=== PATIENT | female | born 2000 | race African-American/Black ===

== ENCOUNTER 2021-12-24 09:36 | Emergency (ER) | payer OTHER ==
[~2021-12-24] VITALS: Ht 167.6 cm; Wt 54.9 kg
[2021-12-24] MEDS ORDERED: NEXP1IMP SC (09:42)
[2021-12-24 10:33] LABS: BASO % 0.4 % (0.0-1.0); EOS % 0.1 % (0.0-3.0); HEMOGLOBIN 14.1 g/dl (12.0-15.5); LYMPH # 2.4 10^3/uL (1.5-5.0); LYMPH % 24.6 % (24.0-44.0); MEAN CORPUSCULAR HEMOGLOBIN 30.8 pg (27.0-33.0); MEAN CORPUSCULAR HGB CONC 33.6 g/dl (32.0-36.5); MEAN CORPUSCULAR VOLUME 91.7 fl (80.0-96.0); MONO # 0.6 10^3/uL (0.0-0.8); MONO % 6.1 % (2.0-8.0); NEUTROPHILS # 6.6 10^3/uL (1.5-8.5); NEUTROPHILS % 68.6 % (36.0-66.0); PLATELET COUNT, AUTOMATED 232 10^3/uL (150-450); RED BLOOD COUNT 4.58 10^6/uL (4.00-5.40); WHITE BLOOD COUNT 9.6 10^3/uL (4.0-10.0)
[2021-12-24 10:55] LABS: AMPHETAMINES LEVEL URINE NEGATIVE (NEGATIVE); BARBITURATES URINE NEGATIVE (NEGATIVE); BENZODIAZEPINES URINE NEGATIVE (NEGATIVE); CANNABINOIDS URINE NEGATIVE (NEGATIVE); COCAINE METABOLITE URINE NEGATIVE (NEGATIVE); METHADONE URINE NEGATIVE (NEGATIVE); OPIATES URINE NEGATIVE (NEGATIVE); PHENCYCLIDINE URINE NEGATIVE (NEGATIVE)
[2021-12-24 11:14] LABS: ACETAMINOPHEN LEVEL 31.6 UG/ML (10.0-30.0); ALBUMIN 4.4 GM/DL (3.2-5.2); ALT/SGPT 16 U/L (12-78); BILIRUBIN,DIRECT < 0.1 MG/DL (0.0-0.2); BILIRUBIN,TOTAL 0.2 MG/DL (0.2-1.0); BLOOD UREA NITROGEN 8 MG/DL (7-18); CALCIUM LEVEL 9.5 MG/DL (8.5-10.1); CARBON DIOXIDE LEVEL 26 MEQ/L (21-32); CHLORIDE LEVEL 107 MEQ/L (98-107); CREATININE FOR GFR 0.95 MG/DL (0.55-1.30); ETHYL ALCOHOL (ETHANOL) < 0.003 % (0.000-0.010); GLOMERULAR FILTRATION RATE > 60.0 (>60); GLUCOSE, FASTING 113 MG/DL (70-100); POTASSIUM SERUM 3.4 MEQ/L (3.5-5.1); SALICYLATE LEVEL 18.4 MG/DL (5.0-30.0); SODIUM LEVEL 139 MEQ/L (136-145); TOTAL PROTEIN 8.4 GM/DL (6.4-8.2)
[2021-12-24 12:29] LABS: SALICYLATE LEVEL 19.2 MG/DL (5.0-30.0)
[2021-12-24 13:30] VITALS: BP 116/70
[2021-12-24 14:51] LABS: ACETAMINOPHEN LEVEL 22.7 UG/ML (10.0-30.0); SALICYLATE LEVEL 17.4 MG/DL (5.0-30.0)
== END 2021-12-24 15:37 | disposition home or self-care (01) ==
LOC: EDBD 09:36 → M ED 09:36
DX: T39.1X1A Poisoning by 4-Aminophenol derivatives, accidental (unintentional), initial encounter (principal); T39.011A Poisoning by aspirin, accidental (unintentional), initial encounter; T43.611A Poisoning by caffeine, accidental (unintentional), initial encounter; M54.9 Dorsalgia, unspecified; Z88.2 Allergy status to sulfonamides

== ENCOUNTER 2022-01-04 22:42 | Emergency (ER) | payer OTHER ==
[~2022-01-04] VITALS: Ht 162.6 cm; Wt 53.2 kg
[~2022-01-04 22:42] MED LIST: NEXP1IMP SC
[2022-01-04 22:45] VITALS: BP 118/75
== END 2022-01-04 23:35 | disposition left against medical advice (07) ==
LOC: M ED 22:42
DX: Z53.21 Procedure and treatment not carried out due to patient leaving prior to being seen by health care provider (principal)

== ENCOUNTER 2022-03-09 09:11 | Emergency (ER) | payer OTHER ==
[~2022-03-09] VITALS: Ht 165.1 cm; Wt 53.1 kg
[~2022-03-09 09:11] MED LIST changes: +ETON68IM SC; -NEXP1IMP SC
[2022-03-09] MEDS ORDERED: NEOSPORIN OINT 0.9 GM PKT TOP ONE (11:55)
[2022-03-09 12:16] VITALS: BP 117/60
== END 2022-03-09 12:16 | disposition home or self-care (01) ==
LOC: M ED 09:11
DX: S91.202A Unspecified open wound of left great toe with damage to nail, initial encounter (principal); W22.8XXA Striking against or struck by other objects, initial encounter; Z88.2 Allergy status to sulfonamides